=== PATIENT | male | born 1975 | race Caucasian/White ===

== ENCOUNTER 2016-11-16 11:59 | Emergency (ER) | payer BC ==
--- NOTE | 2016-11-16 13:48 | UC ---
Throat Pain/Nasal Awais HPI - History of Current Complaint Chief Complaint: UCRespiratory Stated Complaint: SORE THROAT Time Seen by Provider: 11/16/16 13:41 Hx Obtained From: Patient Onset/Duration: Gradual Onset - 3-4 days for the sore throat, Lasting Weeks - for the cold symptoms with congestion sinus burning pain and cough, Worse Since - last 3-4 days with sore throat and difficulty talking. Severity: Moderate Cough: Productive Associated Signs & Symptoms: Positive: Dysphagia, Hoarseness, Sinus Discomfort, Nasal Discharge Related History: Seasonal Allergies - Epiglottits Risk Factors Epiglottis Risk Factors: Negative - Allergies/Home Medications Allergies/Adverse Reactions: Allergies Allergy/AdvReac Type Severity Reaction Status Date / Time No Known Allergies Allergy Verified 11/16/16 13:17 PMH/Surg Hx/FS Hx/Imm Hx Endocrine History Of: Reports: Thyroid Disease - hypo Denies: Diabetes Cardiovascular History Of: Denies: Cardiac Disorders, Hypertension Respiratory History Of: Denies: COPD, Asthma GI/ History Of: Denies: Ulcer - Surgical History Surgical History: None - Family History Known Family History: Positive: Respiratory Disease Negative: Cardiac Disease, Hypertension, Diabetes - Social History Occupation: Employed Full-time Lives: With Family Alcohol Use: Occasionally Substance Use Type: None Smoking Status (MU): Former Smoker Type: Cigarettes Amount Used/How Often: 1/2 - 3/4 ppd Length of Time of Smoking/Using Tobacco: 20 yrs Have You Smoked in the Last Year: Yes When Did the Patient Quit Smoking/Using Tobacco: 5 DAYS AGO Household Exposure Type: Cigarettes - Immunization History Most Recent Tetanus Shot: OVER 20 YEARS AGO Review of Systems ENT: Sore Throat Respiratory: Cough All Other Systems Reviewed And Are Negative: Yes Physical Exam Triage Information Reviewed: Yes Appearance: No Pain Distress, Well-Nourished, Ill-Appearing - mild Vital Signs: Initial Vital Signs Temp 98.5 F 11/16/16 13:11 Pulse 64 11/16/16 13:11 Resp 20 11/16/16 13:11 Pulse Ox 97 11/16/16 13:11 Vital Signs Reviewed: Yes ENT: Positive: Pharynx normal, Nasal congestion, TMs normal Neck: Positive: Supple, Nontender, Enlarged Nodes @ - shotty anterior LA. Respiratory: Positive: Wheezing - expiratory wheeze, worse with cough Cardiovascular: Positive: RRR. Negative: No Murmur Musculoskeletal Exam: Normal Neurological Exam: Normal Psychological Exam: Normal Skin Exam: Normal Throat Pain/Nasal Course/Dx - Differential Dx/Diagnosis Differential Diagnosis/HQI/PQRI: Peritonsillar Abscess, Pharyngitis, URI Provider Diagnoses: Acute URI. Acute pharyngitis. Acute bronchospasm Discharge - Discharge Plan Condition: Stable Disposition: HOME Prescriptions: predniSONE TAB* [Deltasone TAB*] 20 mg PO DAILY #18 tab Patient Education Materials: Upper Respiratory Infection (ED), Bronchospasm (ED ), Prednisone (By mouth)
[2016-11-16] MEDS ORDERED: predniSONE TAB* 20 MG PO ONE (14:04)
== END 2016-11-16 14:26 | disposition home or self-care (01) ==
LOC: UCCORT 11:59
DX: J06.9 Acute upper respiratory infection, unspecified (principal); J02.9 Acute pharyngitis, unspecified; J98.01 Acute bronchospasm; E03.9 Hypothyroidism, unspecified; Z87.891 Personal history of nicotine dependence
CPT/HCPCS: 87651; 99212; G0463; J7512

== ENCOUNTER 2017-12-18 17:35 | Emergency (ER) | payer BC ==
[2017-12-18 17:52] VITALS: BP 130/82
--- NOTE | 2017-12-18 18:33 | UC ---
Throat Pain/Nasal Awais HPI - HPI Summary HPI Summary: 42 yo WM c/o throat pain x1 day associated with nasal congestion and rhinorrhea. 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, denies f/c/cough - History of Current Complaint Chief Complaint: UCGeneralIllness Stated Complaint: SORE THROAT Time Seen by Provider: 12/18/17 18:21 Hx Obtained From: Patient Onset/Duration: Sudden Onset Pain Intensity: 6 Associated Signs & Symptoms: Positive: Nasal Discharge Related History: Seasonal Allergies - Epiglottits Risk Factors Epiglottis Risk Factors: Negative - Allergies/Home Medications Allergies/Adverse Reactions: Allergies Allergy/AdvReac Type Severity Reaction Status Date / Time No Known Allergies Allergy Verified 12/18/17 17:45 Home Medications: Home Medications Acetaminophen [Tylenol Extra Strength] 1,000 mg PO Q6H PRN 12/18/17 [History Confirmed 12/18/17] diphenhydrAMINE HCl [Benadryl Allergy 25 MG CAP] 25 mg PO Q6H PRN 12/18/17 [ History Confirmed 12/18/17] PMH/Surg Hx/FS Hx/Imm Hx Previously Healthy: Yes - Surgical History Surgical History: None - Family History Known Family History: Positive: Respiratory Disease Negative: Cardiac Disease, Hypertension, Diabetes - Social History Alcohol Use: Occasionally Substance Use Type: None Smoking Status (MU): Former Smoker Type: Cigarettes Amount Used/How Often: 1/2 - 3/4 ppd Length of Time of Smoking/Using Tobacco: 20 yrs Have You Smoked in the Last Year: Yes When Did the Patient Quit Smoking/Using Tobacco: 01/2016 Household Exposure Type: Cigarettes - Immunization History Most Recent Tetanus Shot: OVER 20 YEARS AGO Review of Systems Constitutional: Negative Skin: Negative Eyes: Negative ENT: Sore Throat Respiratory: Negative Cardiovascular: Negative Gastrointestinal: Negative Genitourinary: Negative Motor: Negative Neurovascular: Negative Musculoskeletal: Negative Neurological: Negative Psychological: Negative All Other Systems Reviewed And Are Negative: Yes Physical Exam Triage Information Reviewed: Yes Vital Signs: Initial Vital Signs Temp 36.6 C 12/18/17 17:46 Pulse 60 12/18/17 17:46 Resp 16 12/18/17 17:46 BP 130/82 12/18/17 17:46 Pulse Ox 98 12/18/17 17:46 Eye Exam: Normal ENT: Positive: Pharyngeal erythema, Nasal congestion, TMs normal, Tonsillar exudate - 3mm white exudate on right tonsilar crypt with erythema, Uvula midline. Negative: TM bulging, TM dull, TM red Dental Exam: Normal Neck exam: Normal Neck: Positive: Enlarged Nodes @ - B/L cervical LN tenderness Respiratory Exam: Normal Cardiovascular Exam: Normal Abdominal Exam: Normal Musculoskeletal Exam: Normal Neurological Exam: Normal Psychological Exam: Normal Skin Exam: Normal Throat Pain/Nasal Course/Dx - Course Course Of Treatment: exudative tonsillitis - sent out for throat cx, will tx with amox in the mean time - Differential Dx/Diagnosis Provider Diagnoses: Exudative tonsillits Discharge - Sign-Out/Discharge Documenting (check all that apply): Discharge/Admit/Transfer - Discharge Plan Condition: Stable Disposition: HOME Prescriptions: Amoxicillin PO (*) [Amoxicillin 875 MG (*)] 875 mg PO BID 7 Days #14 tab Patient Education Materials: Pharyngitis (ED) Referrals: Yelena Ken MD [Primary Care Provider] - - Billing Disposition and Condition Condition: STABLE Disposition: HOME
--- NOTE | 2017-12-21 14:46 | UC ---
- Progress Note Progress Note: 3+ normal dillon - throat final no change Ljj 12/21/2017 1446 Discharge - Sign-Out/Discharge Documenting (check all that apply): Post-Discharge Follow Up - Discharge Plan Condition: Stable Disposition: HOME Prescriptions: Amoxicillin PO (*) [Amoxicillin 875 MG (*)] 875 mg PO BID 7 Days #14 tab Patient Education Materials: Pharyngitis (ED) Referrals: Yelena Ken MD [Primary Care Provider] - - Billing Disposition and Condition Condition: STABLE Disposition: HOME
== END 2017-12-18 18:39 | disposition home or self-care (01) ==
LOC: UCCORT 17:35
DX: J03.90 Acute tonsillitis, unspecified (principal); Z87.891 Personal history of nicotine dependence
CPT/HCPCS: 87070; 87651; 99212; G0463